=== PATIENT | male | born 1985 | race Asian ===

== ENCOUNTER 2024-01-12 10:27 | Outpatient (AMB) | payer BC, SELFPAY ==
--- NOTE | 2024-01-12 10:28 | HO.SPINEOV ---
Intake Visit Reasons: Cervical Spine Stenosis Intake Note: Mr. Romero is here today c/o right sided neck/upper back pain with tingling in the arm and fingers. 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 It is symptoms probably initially began sometime around September when he had a stiff neck and woke up the next morning with feelings of weakness in his right triceps. He does weightlifting triceps extensions in noticed he was not having similar strength to what he had done previously with the exercise. The stiff neck went away pretty quickly, and Eventually over the course of time the weakness went away as well. Sometime around mid October or the beginning of November he had a similar event where he noticed neck pain where he thought maybe he slept wrong or something. However, he developed a true radiculopathy with severe pain going into his subscapular area radiating down to his arm with tingling of his index in his middle finger. The triceps weakness came back as well. Over the course of a few weeks the weakness started to get significantly worse. He was very concerned about this and reached out to your office. An MRI was done and this showed C6-7 foraminal narrowing and he was sent urgently to see us. He had been scheduled with another neurosurgeon in the area at the end of December but because of the weakness we expedited an appointment. Had been trying ibuprofen, acetaminophen as well as marijuana gummies but nothing seems to take the pain away. He was also doing a temporary course of prednisone at 1 point, without any lasting effect. He did see his physical therapist who treats him for other elements and she did not think she was going to be able to treat this effectively given the weakness and the MRI findings. PMH: He is otherwise healthy, he had an appendectomy done when he was I believe 10 years old but no other major medical problems. Social hx: He has not smoke, drink, he does take marijuana gummies a few days a week just to help with some of the pain. Medications: Ibuprofen, acetaminophen, marijuana gummies Allergies: None Physical exam: He is awake alert oriented here with his today, he is uncomfortable with some upper extremity activity movements, he does have true weakness of the right triceps which I would rate as about 3/5. Left triceps is normal strength. Rest of his upper extremity strength is normal. He has absent reflexes bilaterally at the triceps, 2+ at the biceps, negative Jackson's sign. Positive Spurling sign. He does not have any signs of muscle atrophy at this point. Imaging review: Cervical MRI done at [facility] shows he has some mild disc degeneration throughout his cervical spine, but at C6-7 on the right there appears to be a small disc herniation tucked into the foramen which appears to be posteriorly displacing the right C7 nerve root. No evidence of any cord signal change or myelomalacia. Impression: 38 year old male presents to the office today with a C7 radiculopathy which I believe to be due to the small disc herniation seen at the C6-7 level on the right. We had a lengthy discussion about the natural history of disc herniations and the long-term implications of weakness in his arm and the urgency to expedite surgery because the weakness has been rapidly progressing. Typically the option for this kind of surgery would be anterior cervical fusion, but because of his age, and his activity levels it would likely be better for him to have an artificial disc. I did send Dr. Palomo his imaging and he agrees that this is certainly very reasonable option. I talked about expectations after surgery and that there was no guarantee that the weakness in the arm would come back to full strength as there could be some underlying nerve damage already, but that the success rate for the arm pain is 90%. The patient understands and wants to proceed with surgery. Pt was given risk and benefits of surgery including but not limited to infection, hematoma , nerve injury,durotomy, weakness,bowel/bladder injury, persistent pain, vocal hoarseness and dysphagia as well as the option to continue with conservative treatment and patient wishes to proceed with surgery. Pt is aware they should stop their motrin, 7 days prior to surgery. All questions were answered to the best of our ability. If there is anything about this patients medical history that we have overlooked or concerns you have about us proceeding with surgery we would appreciate any input you can offer. Thank you for allowing us to care for your patient. The total time spent with this visit with this patient was 65 minutes reviewing history, physical exam, cervical imaging review, and implementation of treatment plan or further diagnostic testing Davonte Palomo MD,PhD [facility] Coding Level of Care Code New Pt Level 5 (80346) Diagnoses Cervical radiculopathy M54.12
== END 2024-01-12 11:43 | disposition home or self-care (01) ==
PROVIDERS: PCP Family Medicine; Referring Provider Physical Medicine & Rehabilitation; Visit Provider Physician Assistant
DX: M54.12 Radiculopathy, cervical region (principal)
CPT/HCPCS: 99205

== ENCOUNTER → 2024-01-12 10:27 | Outpatient (BNVA) | payer BC, SELFPAY | PROVIDERS: PCP Family Medicine; Visit Provider Physician Assistant ==

== ENCOUNTER 2024-01-15 12:50 | Day surgery (SDC) | payer BC, SELFPAY ==
[2024-01-15] VITALS (14 sets, daily range): BP systolic 114–129; BP diastolic 66–81; PULSE 54–71; RESP 14–16; TEMP 36.6–36.9; O2SAT 98–100; BMI 24.2
[2024-01-15] MEDS: methocarbamoL 750 MG TABLET PO (13:21)
[2024-01-15] MEDS: Gabapentin 300 MG CAPSULE PO (13:21)
--- NOTE | 2024-01-15 13:24 | MHC.SHP ---
Pre-Procedural Eval Section A - 24 Hr Update-Section A only Date of Service: 01/15/24 The patient is an INPATIENT: No The patient has been examined within 24 hours of the surgical procedure. The History & Physical has been completed within 30 days and I have reviewed it.: Yes Section B - Complete if H&P > 30 days Chief Complaint: Radiculopathy, cervical region Allergies: Allergies Allergy/AdvReac Type Severity Reaction Status Date / Time No Known Allergies Allergy Verified 01/15/24 13:00 Plan Diagnosis/Plan: Unchanged I have reviewed the history and physical and performed a pertinent physical examination on my patient. No changes have occurred unless specified. 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
--- NOTE | 2024-01-15 13:25 | HO.ANESPROP2 ---
[facility] Active Problems Active Problems: All Active Problems Cervical radiculopathy (Acute) Past Medical History Medical History Cervical radiculopathy Surgical History Surgical History Hx of wisdom tooth extraction Hx of appendectomy History of Problems with Anesthesia: No Social History Social History Patient Tobacco Use Status: Never used Tobacco Use of substances other than those prescribed or required for medical reasons: Yes Substance Use Type Other:: edibles--2-3 x wk Substance Use Frequency: Occasionally Are you DNR?: No Advance Directives: No Advance Directives Information Provided: Yes Meds Allergies Allergy/AdvReac Type Severity Reaction Status Date / Time No Known Allergies Allergy Verified 01/15/24 13:00 Active Medications: Current Medications Lactated Ringer's (Lr) 1,000 mls @ 50 mls/hr IVCONT .Q20H BRENNAN Home Medications ?Medication ?Instructions ?Recorded ?Confirmed ?Last Taken ?Type [place] 3 PO DAILY 01/15/24 01/12/24 History cholecalciferol (vitamin D3) 25 25 mcg PO DAILY 01/15/24 01/15/24 01/12/24 History mcg (1,000 unit) capsule (Vitamin D3) ibuprofen 400 mg tablet 400 mg PO Q6H PRN Pain 01/15/24 01/15/24 01/12/24 History lactobacillus combination no.4 3 3 cell PO DAILY 01/15/24 01/15/24 01/12/24 History billion cell capsule (Probiotic) turmeric PO DAILY 01/15/24 01/12/24 History Exam Height,Weight and Vital Signs: Height 6 ft 3 in Weight 87.997 kg Last Vital Signs Temp 98.5 F 01/15/24 13:12 Pulse 62 01/15/24 13:12 Resp 15 01/15/24 13:12 BP 124/78 01/15/24 13:12 Pulse Ox 100 01/15/24 13:12 O2 Del Method Room Air 01/15/24 13:12 Airway Mallampati Class: III (long neck) TM Dist: >3cm Neck ROM: Limited Loose/Missing/Broken Teeth: No Heart: RRR Lungs: CTA Assessment and Plan Assessment Anesthesia Assessment: Anesthesia Plan Discussed and Chart Reviewed Final Anesthetic Review History of Problems with Anesthesia: No NPO: Yes ASA Class: I Final Preanesthetic Review: Meds/Allgs Chart Reviewed, Consent Obtained/Reviewed and Anes Risks/Benef Reviewed Patient Risk: Low Procedure Risk: Intermediate Anesthetic Plan Anesthetic Plan: GA Disposition: Standard PACU
[2024-01-15] MEDS: Lactated Ringers 1,000 ML 50 ML IVCONT (13:31)
--- NOTE | 2024-01-15 15:21 | W.PM.OPN ---
Operative Note Operative Note Date of Service: 01/15/24 Narrative: Preoperative Diagnosis: Right C7 radiculopathy with triceps weakness Procedure : C6-7 total disc arthropathy Informed Consent was obtained for this operation. I have explained the nature, purpose and benefits of the operation. I have discussed the risks and benefit of the operation including possible complications or adverse events with patient/family. Alternative(s) were discussed with the patient with their relative benefits and risks as well as the consequences of not accepting the operation were included in obtaining consent. Surgeon: JOVAN SALDIVAR MD, PHD Procedure Assisted By: Saad Wheeler Description of Procedure: This 38-year-old male is suffering from right cervical radiculopathy and progressive triceps weakness. An MRI of the cervical spine shows a bilateral C7 foraminal stenosis and a small intraforaminal disc fragment compressing the C7 nerve root on the right side.. The patient was offered a total disc arthropathy The alternatives, procedure and complications were explained. The patient was consented. The patient was brought to the operating room and endotracheally intubated. The patient was put in supine position with slight extension of the neck. Prep and drape was done followed by timeout. A mid cervical incision was made followed by opening of the platysma. The prevertebral fascia was reached following the natural planes while the physician psychiatric nursing assistant provided manual retraction. The prevertebral fascia was opened to expose the disc space. A spinal needle was placed in the disk space to confirm the correct level with xray. The longus colli muscles were released bilaterally and a self retaining retractor was inserted. Two [place] pins were placed in the C6 and C7 vertebral bodies parallel to the endplates and distraction was give over the interspace. The discectomy was completed toward the posterior annulus of the disc. The microscope was brought in. The remainder of the discectomy was completed. The posterior ligament was opened and resected to expose the underlying dura. Bilateral foraminotomies were done. A nerve hook could be easily passed over the exiting nerve roots as a sign of adequate decompression. A trial implant was inserted to determine the correct implant size is. Then an artificial disc of sentinel spine of 19 x 16 and 5 mm height was inserted under fluoroscopic guidance. Final x-rays in AP and lateral projection showed a satisfactory position of the implant. The physician psychiatric nursing assistant took over. The [place] pin was removed. Hemostasis was done. He closed the incision in 2 layers with a 3-0 Vicryl. Steri-Strips used to approximate incision. An OpSite with Tegaderm was used to cover the incision. All sponge and needle counts were correct. Patient was extubated and transported in stable is to recovery room. Anesthesia: General Estimated Blood Loss (ml): 10 Duration of Surgery: 60 minutes Postoperative Plan: Discharge home Complications: None
--- NOTE | 2024-01-15 15:27 | P.DS_ITS ---
DS: Providers Provider Date of Service: 01/15/24 Primary care physician: Modesta Pena MD DS: Summary Time Attestation Discharge Coordination Time (in mins): 30 Quality: Safe Use of Opioids Does Pt have an Active Cancer Diagnosis on the Problem List?: No Quality: Stroke Does the patient have a stroke diagnosis?: No Physical Exam Vital Signs: Vital Signs: Last Vital Signs Temp 98.5 F 01/15/24 13:12 Pulse 62 01/15/24 13:12 Resp 15 01/15/24 13:12 BP 124/78 01/15/24 13:12 Pulse Ox 100 01/15/24 13:12 O2 Del Method Room Air 01/15/24 13:12 BMI result Body Mass Index 24.2 Discharge Plan Discharge Patient Disposition: Home, Self-Care Referrals: Modesta Pena MD [Primary Care Provider] - 1 Week Discharge Medications: No Action ibuprofen 400 mg Tablet 400 mg PO Q6H PRN (Reason: Pain) cholecalciferol (vitamin D3) [Vitamin D3] 25 mcg (1,000 unit) Capsule 25 mcg PO DAILY Probiotic 3 billion cell Capsule 3 cell PO DAILY [place] 3 PO DAILY turmeric PO DAILY Discharge Orders: Discharge Order (Routine); Ordered 01/15/24 Ordered By: Saad Wheeler Diet: Advance to usual diet Activity on Discharge: As tolerated Activity Restrictions/Additional Instructions: After your spinal surgery we ask you to observe the following restrictions/guidelines: Activity: It is normal to feel some discomfort as you increase your activity, but that will improve with time. We ask you avoid heavy lifting or acitivities that cause pain. As a general rule, 8lbs is a safe limit for lifting right after surgery. Walk as much as you feel comfortable but not to exhaustion. You will feel extra tired the first few days after surgery. Stay well hydrated. It is OK to walk up and down stairs You may return to driving when you are off narcotics (such as vicodin, oxycodone, dilaudid, etc), and you are back to normal functional capacity. If you have any concerns please check with office before driving. Return to work is specific to each patient and each surgery, so please speak with your doctor/PA at first follow up. Please bring paperwork such as FMLA at that time if you need it filled out. Medication: You can take Tylenol 1,000mg 3 times daily alongside the oxycodone we are prescribing. You may also utilize ibuprofen as needed if you are able to tolerate it, starting 1 day after surgery. We will give you a short supply of narcotics after surgery (usually one weeks worth). If you need more please call the office but do not use more than prescribed. You will need to give our office 48 hours notice if you need narcotics refilled and we do not fill narcotics on weekends or evenings. If you are on a narcotic, it is a good idea to take a stool softener such as colace or senna to avoid constipation If you take blood thinner such as aspirin, Plavix, Coumadin, Effient, Eliquis etc for conditions such as Afib, DVT, Pulmonary embolus, coronary disease, stents etc please speak with your surgeon about specific details as to when you can resume these medications. You can resume NSAIDs on post op day 1 (eg: Motrin, Naproxen, etc). Follow up: Please call the office, , after surgery to arrange a 3 week follow up for wound check. Wound Care: You may remove your dressing on the first day after surgery. ?You may ?leave open to air. Please do not remove the steri strips underneath. they will fall off on their own in one week. IT IS NORMAL FOR THE WOUND TO OOZE OR BE BLOODY FOR A FEW DAYS AFTER SURGERY. ?IF THIS HAPPENS JUST PLACE NEW DRESSING OVER IT TO AVOID STAINING CLOTHES. You may shower on post op day # 1 We ask that you do not let the water soak the wound. If it does get wet, just towel dry lightly. Please do not scrub your incision or place any type of chemical/ointment on the wound. No tub baths, pools or jacuzzis for one month. If you have any leaking or redness from your wound, or fevers, please call office Print Language: Luxembourger
[2024-01-15] MEDS: fentaNYL citrate/PF 100 MCG/2 ML VIAL 25 MCG IVPUSH ×4 (15:46→16:03)
[2024-01-15] MEDS: oxyCODONE HCl Immed Release 5 MG TABLET PO (16:14)
== END 2024-01-15 17:00 | disposition home or self-care (01) ==
PROVIDERS: PCP Family Medicine; Visit Provider Neurological Surgery
PROC: (CPT 22856; principal; 2024-01-15 15:30)
DX: M54.12 Radiculopathy, cervical region (principal); M48.02 Spinal stenosis, cervical region
CPT/HCPCS: 22856; C1776; J0131; J0690; J1100; J2250; J2405; J2704; J3010

== ENCOUNTER → 2024-01-15 12:50 | Outpatient (BNV) | payer BC, SELFPAY | PROVIDERS: PCP Family Medicine; Visit Provider Neurological Surgery | DX: M54.12 Radiculopathy, cervical region (principal) | CPT/HCPCS: 22856; 99499 ==

== ENCOUNTER 2024-02-05 15:33 | Outpatient (REF) | payer BC, SELFPAY | END 2024-02-05 15:34 | disposition home or self-care (01) | LOC: HO.HOSX 15:33 | PROVIDERS: PCP Family Medicine; Visit Provider Physician Assistant | DX: Z13.89 Encounter for screening for other disorder (principal) ==

== ENCOUNTER 2024-02-05 15:33 | Outpatient (AMB) | payer BC, SELFPAY ==
--- NOTE | 2024-02-05 15:41 | A.SPINEOV_ITS ---
Intake Visit Reasons: 1st post op Intake Note: Mr. Romero is here today for his 1st post-op visit. 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 He is seen remarkable improvements in the preoperative tingling and pain down his arm. He feels as though the strength might be slightly better as well. He is thinking about heading back to work. He has been walking, but avoiding any strenuous activity as outlined in our instructions on discharge. On my exam his wound is healing up nicely, he almost has full strength in the right triceps. This is very encouraging. We discussed activity guidelines, restrictions and expectations after total disc arthroplasty. I allowed him to liberalize some of his activity and exercise but did tell him I would like him to avoid doing full tennis activities as the serving part of the competition can be a bit of a repetitive motion activity and would not want him to do that at this time. I would like to see him back in 6 weeks with a set of x-rays. I gave him a note to start work half days and return to full days into weeks. Davonte Palomo MD, PhD [facility] Coding Level of Care Code Global (70831) Diagnoses Cervical radiculopathy M54.12
== END 2024-02-05 16:20 | disposition home or self-care (01) ==
PROVIDERS: PCP Family Medicine; Visit Provider Physician Assistant
DX: M54.12 Radiculopathy, cervical region (principal)
CPT/HCPCS: 99024

== ENCOUNTER 2024-03-22 14:41 | Outpatient (REF) | payer BC, SELFPAY ==
--- NOTE | ~2024-03-22 | XR_ITS ---
EXAMINATION: XR CERVICAL SPINE 4 VIEWS CLINICAL INFORMATION: Radiculopathy, cervical region M54.12. COMPARISON: None available TECHNIQUE: 4 views of the cervical spine, inclusive of flexion and extension views, were obtained. FINDINGS: The cervical spine is imaged to the C7 vertebral body. There is relative straightening of the cervical lordosis. Status post disc arthroplasty at C6-C7. No radiographic evidence of hardware complication. No significant subluxation with flexion and extension. Vertebral body heights are maintained. Prevertebral soft tissues are within normal limits. XR/XR cervical spine 4V IMPRESSION: Status post disc arthroplasty at C6-C7. No acute abnormality. Electronically signed by: Allen Enamorado MD 05/13/2024 02:06 PM SHALONDA DIAMOND
== END 2024-03-22 14:42 | disposition home or self-care (01) ==
LOC: HO.HOSX 14:41
PROVIDERS: PCP Family Medicine; Visit Provider Physician Assistant
DX: M54.12 Radiculopathy, cervical region (principal)
CPT/HCPCS: 72050

== ENCOUNTER 2024-03-22 14:41 | Outpatient (AMB) | payer BC, SELFPAY ==
--- NOTE | 2024-03-22 14:49 | HO.SPINEOV ---
Intake Visit Reasons: 2nd post op with xrays Intake Note: Mr. Romero is here today for his 2nd post-op appointment with Xrays Director Of Distribution Required: No Allergies No Known Allergies Allergy (Verified 02/05/24 15:49) Assessment & Plan Assessment & Plan (1) Cervical radiculopathy: Code(s): M54.12 - Radiculopathy, cervical region Category: Medical Plan Mr Romero is 2 months out from his artificial disc. He seems to be doing well in terms of the pain. His triceps is healing up slowly, still having some trouble with his exercise routine getting the number of repetitions and the weight is back to where they were before his disc herniated. I reassured him that the nerve may take up to a year to heal and that he should continue to work to try to improve the strength. Working with a physical therapist would help. He has 1 that he has used in the past for other issues and is going to talk with her about getting some exercises to see if he can optimize that arm. He has been playing tennis but not doing the serving motions because of the repetitive up and down with the neck flexion and extension. We have asked him to use caution with doing that right after the surgery. He had his x-rays done today and these show excellent position of the implant and I do not see any signs of bony overgrowth her fusion at the surgical site. He was little worried about that right after surgery but it seems that everything is healing up beautifully. I told him that at this point he has no restrictions and he can go back to tennis as tolerated but to expect some neck discomfort when he starts. It may take some time for that they go away. At this point he can come back and see us on an as-needed basis. Davonte Palomo MD, PhD [facility] Coding Level of Care Code Global (73092) Diagnoses Cervical radiculopathy M54.12
== END 2024-03-22 16:02 | disposition home or self-care (01) ==
PROVIDERS: PCP Family Medicine; Visit Provider Physician Assistant
DX: M54.12 Radiculopathy, cervical region (principal)
CPT/HCPCS: 99024

== ENCOUNTER 2024-11-26 16:30 | Outpatient (REF) | payer BC, SELFPAY | END 2024-11-26 16:31 | disposition home or self-care (01) | LOC: HO.HOSX 16:30 | PROVIDERS: Visit Provider Physician Assistant | DX: Z13.89 Encounter for screening for other disorder (principal) ==

== ENCOUNTER 2024-11-29 11:23 | Outpatient (REF) | payer BC, SELFPAY ==
--- NOTE | ~2024-11-29 | XR_ITS ---
EXAMINATION: XR CERVICAL SPINE CLINICAL INFORMATION: M54.12 - Radiculopathy, cervical region COMPARISON: March 22, 2024. TECHNIQUE: AP, lateral views and lateral views during flexion and extension position. FINDINGS: Intervertebral disc spacer placement at C6-7. Small marginal osteophyte formation and decreased intervertebral disc height at C5-6. No acute cortical disruption. No gross malalignment. No malalignment during flexion and extension position. Craniocervical junction is intact. No lytic or blastic lesions. Prominent transverse processes versus rudimentary ribs at C7. XR/XR cervical spine 4V IMPRESSION: No acute fracture or listhesis or gross instability. 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 Stable intervertebral disc spacers C6-7. Electronically signed by: Chaz Grewal MD 11/29/2024 11:48 AM EDT
== END 2024-11-29 11:24 | disposition home or self-care (01) ==
LOC: HO.HOSX 11:23
PROVIDERS: Visit Provider Physician Assistant
DX: M54.12 Radiculopathy, cervical region (principal)
CPT/HCPCS: 72050

== ENCOUNTER 2024-11-29 11:23 | Outpatient (AMB) | payer BC, SELFPAY ==
--- NOTE | 2024-11-29 11:49 | HO.SPINEOV ---
Intake Visit Reasons: f/u from sx 01/15/24 Intake Note: Mr. Romero is here today for a F/u. 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 He underwent a C6-7 total disc arthroplasty about 10 months ago or so. He has had a subtotal recovery of strength in the triceps, but it is very close to near normal. 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 The only time he really notices it is when he is doing specific triceps exercises and he will be able to do less wraps on the right side than on the left. On my exam today he is strength is full with no noticeable deficits. His x-rays today look excellent, there is no signs of auto fusion at the implant site. I think he still has room for recovery with the strength in the triceps. He has no specific limitations at this point. I can see him back on an as-needed basis. Total amount of time spent in this visit was 20 minutes in discussion of symptoms, cervical x-ray imaging results and subsequent plan of care Davonte Palomo MD,PhD [facility] Coding Level of Care Code Est Pt Level 3 (47791) Diagnoses Cervical radiculopathy M54.12
--- OUTSIDE RECORDS SUMMARY | 2024-11-29 12:17 | XMS_ITS | Data Portability ---
Author Organization [facility], [facility] Address [address] [place] [address] Care Team Providers Care Camp Housekeeper Name Role Phone KEILA PEREZ [facility] [phone] KEILA FAROOQ Battery Wrecker Operator Assessment Encounter Date Assessment Date Assessment LastModified by Organization Details LastModified Time 02/07/2015 02/07/2015 pes planovalgus deformity, plantar wart jerskine Not available 02/07/2015 16:04:37 02/17/2015 02/17/2015 4 PT sessions since initial evaluation on January 09, 2015 Since our prior session patient reports no change in symptom control and function. He has yet to try running or tennis. He has new orthotics that he is also working on breaking in. Clinically associated pain with ROM and resisted motions are improving. He is demonstrating better endurance with exercise and better controlled with squatting and stairs stepping. We will assess if continued exercise with progressive intensity help patient in progression toward their goals. We have discussed return to tennis and he will do this along with breaking in his orthotics. Follow up: 1-2 weeks vicky Not available 02/17/2015 16:13:39 03/13/2015 03/13/2015 5 PT sessions since initial evaluation on January 09, 2015 Since our prior session patient reports improvement in symptom control and functionfor his left knee. His right knee has been a more chronic problem and is slightly more irritated Clinically associated pain with ROM and resisted motions are improving. He is demonstrating better endurance with exercise and better controlled with squatting and stairs stepping. At this time he feels comfortable with his exercise program and comfortable with his plan to return to tennis. No further physical therapy is planned. josullivan Not available 03/14/2015 07:04:38 06/15/2015 06/15/2015 pes planovalgus deformity jerskine Not available 06/15/2015 16:09:58 Plan of Treatment Reminders Order Date Submit Date Provider Last Modified By Organization Details Last Modified Time Details Appointments None record ed. Lab None record ed. Referral None record ed. Procedures None record ed. Surgeries None record ed. Imaging None record ed. Medication Orders None record ed. Patient TargetsNo targets recorded. Patient Instructions Encounter Date Encounter Id Patient Instructions Last Modified By Organization Details Last Modified Time 02/07/2015 [id number] Continue OTC 40% salicylic acid in area of plantar wart daily. Patient to return in 2-3 weeks for orthotic evaluation. jerskine Not available 02/07/2015 16:04:37 03/14/2015 [id number] Patient to retur n in 6-8 weeks for orthotic evaluation. jerskine Not available 03/14/2015 16:02:41 06/15/2015 [id number] Patient to drop off orthotics to be sent to lab for additional permanent scaphoid padding medial longitudinal arches pending improvement. jerskine Not available 06/15/2015 16:09:58 Reason for Referral None Reported. Problems Name Problem SNOMED Code Status Onset Date Resolution Date Notes Provider Name and Address Organization Details Recorded Time Knee pain Active Keila Perez , PT [address] [place], [address] , [facility] 5 07:04:38 Tinea pedis 3612835 Active [address], DPM [address] [place], [address] , [facility] 5 09:44:20 Myopia 97015418 Active 2002 Not Available [facility] 3 03:09:46 Streptococc al sore throat 13375554 Completed 200204/21/2013 Not Available [facility] 3 02:02:02 On examination - a rash Completed 200204/21/2013 Not Available [facility] 3 02:00:47 Problem Notes None recorded. Procedures Surgical History Date Name Laterality Status Provider Name and Address Organization Details Recorded Time 5 14312: Therapeutic Exercise completed Keila Perez, PT [address] [place], [address], [facility] 03/14/2015 07:01:58 5 47360: Therapeutic Exercise completed Keila Perez, PT [address] [place], [address], [facility] 02/17/2015 16:05:54 5 77177: Therapeutic Exercise completed Keila Perez, PT [address] [place], [address], [facility] 02/03/2015 16:08:22 5 23926: Therapeutic Exercise completed Keila Perez, PT [address] [place], [address], [facility] 01/23/2015 12:38:50 5 25944: Therapeutic Exercise completed Keila Perez, PT [address] [place], [address], [facility] 01/16/2015 17:55:25 5 75517: PT Evaluation completed Keila Perez, PT [address] [place], [address], [facility] 01/09/2015 15:57:00 5 Destruction of skin lesion completed Kimberly Lane DPM [address] [place] [address], [address], [facility] 09/23/2014 09:26:44 5 Destruction of skin lesion completed Kimberly Lane DPM [address] [place] [address], [address], [facility] 09/09/2014 09:41:51 5 Destruction of skin lesion completed Kimberly Lane DPM [address] [place] [address], [address], [facility] 08/24/2014 10:34:38 3 Wart completed Indiana Peña Graef, [address], [address], [facility] 07/31/2012 11:42:28 2 Wart completed Indiana Ni, [address], [address], [facility] 05/29/2012 11:34:13 2 Wart completed Indiana Delgadilloforeign, [address], [address], [facility] 04/28/2012 08:29:41 2 Wart completed Indiana Reinosouer Elieforeign, [address], [address], [facility] 04/17/2012 16:11:26 2 Wart completed Ab Talavera MD [address] [place] [address], [address], [facility] 04/12/2012 18:34:03 6 Abdominal Surgery completed Zander Ramey MD [address] [place] [address], [address], [facility] 05/20/2013 15:24:07 Imaging Results None recorded. Procedure Notes None recorded. Medical Equipment None Reported. Allergies No known drug allergies Medications Name Sig Start Date Stop Date Status Note LastModified by Organization Details LastModified Time cyclobenz aprine 10 mg tablet Take 1 tablet twice a day by oral route as needed. 2012 active Not Available Not Available Not Avai lable Tubersol 5 tub. unit/0.1 mL intraderm al injection solution 2010 active Instruct ed he must make a f/u appt to be seen by the nurse in 48-72hrs . Not Available Not Available Not Available triamcino lone acetonide 0.1 % topical cream Apply 1 applicat ion twice a day by topical route for 14 days. 05/11 completed Not Available Not Available Not Available salicylic acid 17 % topical liquid Apply 1 applicat ion every day by topical route after bathing. 2014 active Not Available Not Available Not Avai lable hydrocort isone 1 % topical cream Apply 1 applicat ion twice a day by topical route for 14 days. 08/12 completed Not Available Not Available Not Available Anaprox DS 550 mg tablet Take 1 tablet twice a day by oral route. 2012 active Not Available Not Available Not Avai lable Lamisil AF 1 % topical powder Apply 1 applicat ion by topical route as directed . 2014 active Not Available Not Available Not Avai lable salicylic acid 27.5 % topical film-form ing liquid apply 1 applicat ion. allow to dry apply a second applicat ion. do this BID for up to 6 weeks. 2011 active Not Available Not Available Not Avai lable Vitals Date Recorded Body weight Body mass index (BMI) Heart rate Body height Systolic blood pressure Diastolic blood pressure Provider Name and Address Organization Details Last Updated DateTime 6 21660.6 2059 g 25.5 kg/m2 70 /min 191.77 cm 104 mm[Hg] 68 mm[Hg] Roseline Gacria [facility] 6 15:54:47 Date Recorded Body weight Body height Body mass index (BMI) Heart rate Systolic blood pressure Diastolic blood pressure Provider Name and Address Organization Details Last Updated DateTime 5 20555.6 2059 g 191.77 cm 25.5 kg/m2 68 /min 110 mm[Hg] 64 mm[Hg] Deng Moralez MA [facility] 5 15:12:40 Date Recorded Body weight Body height Heart rate Body mass index (BMI) Systolic blood pressure Diastolic blood pressure Provider Name and Address Organization Details Last Updated DateTime 5 68162.6 2059 g 191.77 cm 70 /min 25.5 kg/m2 110 mm[Hg] 70 mm[Hg] Deng Moralez MA [facility] 5 15:52:02 Social History Question Answer Notes LastModified by Organizat ion Details LastModified Time Tobacco Smoking Status Never Smoker Not Available [facility] 04/18/2011 04:56:02 Do You Have An Advance Directive? No lriel Information not available 05/20/2013 What Is Your Level Of Caffeine Consumption? Occasional Once A Week, Tea 2-3x A Week, Rare Cola Information not available 10/13/2014 How Much Tobacco Do You Chew? None [email or web address] Information not available 04/18/2011 What Type Of Diet Are You Following? REGULAR Information not available 10/13/2014 Which Illicit Or Recreational Drugs Have You Used? 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 No Information not available 03/24/2012 Live Alone Or With Others? With Others [email or web address] Information not available 04/18/2011 Patient Has Health Care Proxy Signed And In Chart No Is Going To Check Status 5.14.15 Information not available 03/24/2012 Marital Status Sydni French [email or web address] Information not available 11/19/2010 Mosquito Repellent Used Routinely No Information not available 03/24/2012 How Many Children Do You Have? 1 Information not available 10/13/2014 Seat Belts Used Routinely Yes Information not available 03/24/2012 Smoke Alarm In Home Yes Information not available 03/24/2012 General Stress Level Medium Information not available 10/13/2014 Do You Use Sunscreen Routinely? No Information not available 03/24/2012 Sex: Unknown Functional Status Question Answer Note LastModified by Organizat ion Details LastModified Time What is your level of alcohol consumption? 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 [email or web address] Information not available 03/24/2012 Mental Status None recorded. Family History Relationship Description Onset Age of this Age Resolved Age Notes LastModified by Organization Details LastModified Time Father Heart disease 72 pacema daiana barker Not available 10/13/2014 10:47:01 Notes:no family history of C A, no family history of kidney disease. no autoimmune diseases. Mother pre-diabetic Medical History No medical history recorded. Immunizations Vaccine Type Date Status Note Provider Patrick alvarado and Address Organization Details Recorded Time Tdap 1 completed Not Available [facility] 06/19/2019 02:29:24 MMR 8 completed Not Available [facility] 04/17/2011 05:23:04 MMR 7 completed Not Available [facility] 04/17/2011 05:22:52 Hep B, adolescent or pediatric 7 completed Not Available [facility] 04/17/2011 05:22:52 Td (adult) 8 completed Not Available [facility] 04/17/2011 05:22:52 Hep B, adolescent or pediatric 7 completed Not Available [facility] 04/17/2011 05:22:52 Hep B, adolescent or pediatric 8 completed Not Available [facility] 04/17/2011 05:22:52 meningococcal ACWY, unspecified formulation 4 completed Not Available [facility] 04/17/2011 05:22:52 polio, unspecified formulation 6 completed HUBERT Landa, [facility] 05/20/2013 15:09:00 polio, unspecified formulation 6 completed Not Available [facility] 04/17/2011 05:22:52 polio, unspecified formulation 6 completed Not Available [facility] 04/17/2011 05:22:52 polio, unspecified formulation 9 completed Not Available [facility] 04/17/2011 05:22:52 DTP 6 completed Not Available [facility] 04/17/2011 05:22:52 DTP 6 completed Not Available [facility] 04/17/2011 05:22:52 DTP 6 completed Not Available [facility] 04/17/2011 05:22:52 DTP 9 completed Not Available [facility] 04/17/2011 05:22:52 Influenza, split virus, trivalent, PF 3 completed Not Available [facility] 06/19/2019 02:33:06 Past Encounters Encounter ID Performer Location Encounter Start Date Encounter Closed Date Diagnosis/Indication Diagnosis SNOMED-CT Code Diagnosis ICD10 Code Diagnosis Note [id number] Leo James[facility] [address] [address] 04/03/2000 15:15:00 06/22/2008 02:02:29 [id number] Leo James [facility], [address] [address] 09/02/2002 14:54:51 06/22/2008 02:02:29 [id number] Connie GIBBS , [facility], OFFICE [address] [place] [address] DR BARNEY HUBERT [address] 09/29/2002 14:39:45 06/22/2008 02:02:29 [id number] Pooja Schreiber MD , [facility], OFFICE [address] [place] [address] ALPHONSEArgenis HUBERT [id number] 10/19/2002 09:01:50 06/22/2008 02:02:29 [id number] Alistair ROSE, [facility], OFFICE [address] [place] [address] ALPHONSEArgenis HUBERT [id number] 07/18/2003 14:35:38 07/18/2003 16:33:31 [id number] Alistair ROSE, [facility], OFFICE [address] [place] [address] ALPHONSEArgenis HUBERT [id number] 11/28/2003 15:04:14 11/29/2003 09:06:37 [id number] Sydni Lockwood MD , [facility], OFFICE [address] [place] [address] ALPHONSEArgenis HUBERT [id number] 11/19/2010 15:50:40 11/19/2010 17:17:04 [id number] FP TREATMENT NURSE [facility], [facility], OFFICE [address] [place] [address] ALPHONSEArgenis HUBERT [id number] 11/22/2010 14:37:28 11/22/2010 14:41:25 [id number] Ab Talavera MD , [facility], [address] [place] [address] 03/24/2012 15:34:56 03/24/2012 16:44:23 [id number] Ab Talavera MD , [facility], [address] [place] [address] 04/10/2012 15:40:24 04/10/2012 16:28:39 [id number] SETH Thomas-[facility], [facility], [address] [place] [address] 04/17/2012 15:16:15 04/17/2012 16:10:15 [id number] Ab Talavera MD , [facility], [address] [place] [address] 04/27/2012 15:48:21 04/27/2012 16:56:30 [id number] [place] [facility], [address] [place] [address] 05/29/2012 09:29:39 05/29/2012 10:34:19 [id number] [place] CONOR Meza , [facility], [address] [place] [address] 07/29/2012 13:49:11 07/29/2012 14:39:12 [id number] Stephanie Heard NP , [facility], [address] [place] [address] 02/04/2013 16:49:02 02/04/2013 17:16:53 Low back pain 763213470 Enc. ice to low back, can alternate with heat. Take anaprox bid as below, flexeril prn at HS if trouble sleeping, can't get comfortabl e. Back care handout given. Work note - out tomorrow. OK to return on 02/08 if better. Rest over the weekend. PT referral done - pt to schedule. F/U if not gradually improving or sx worsening. Reassurred that this seems muscular and should gradually resolve. Knee pain 45985890 Pain in both knees. Pt concerned about possible lyme ( had it). Will return for lyme test but will also f/u with PT for the knee pain which sounds more muscular. [id number] Zander Ramey MD , [facility], [address] [place] [address] 05/06/2013 16:07:29 05/06/2013 16:24:07 Influenza vaccine needed [id number] 118 [id number] Zander Ramey MD , [facility], [address] [place] [address] 05/20/2013 14:59:49 05/21/2013 09:43:15 Adult health examination 991916911 see Risk Assessment and Lifestyle Change Counseling section above Knee pain 55195090 Verruca plantaris 51076678 [id number] Kimberly Lane DPM Podiatry, [facility] [address] [place] [address] 08/24/2014 09:35:23 08/24/2014 15:33:20 Verruca plantaris 28304901 Tinea pedis 0183608 Onychomycosis 149466772 Exostosis 819329162 Left medial Lisfranc's joint [id number] Kimberly Lane DPM Podiatry, [facility] [address] [place] [address] 09/09/2014 09:17:12 09/09/2014 09:44:31 Tinea pedis 5017011 Verruca plantaris 19371318 [id number] Kimberly Lane DPM Podiatry, [address] [address] 09/23/2014 09:08:46 09/23/2014 09:32:32 Verruca plantaris 15102162 [id number] Keila Farooq DPM Podiatry, [address] [address] 10/11/2014 12:09:10 10/11/2014 12:31:24 Verruca plantaris 96942631 [id number] BERNIE Henry , [facility], [address] [place] [address] 10/13/2014 10:01:05 10/13/2014 11:11:14 Adult health examination 357996720 see Risk Assessment and Lifestyle Change Counseling section above [id number] Keila Farooq DPM Podiatr, [address] [address] 11/03/2014 15:39:38 11/03/2014 16:14:43 Verruca plantaris 57010903 [id number] Keila Farooq DPM Podiatry, [address] [address] 12/01/2014 12:23:53 12/15/2014 03:45:10 Verruca plantaris 11055248 Pain in limb 34747514 Congenital valgus deformity of foot 57505750 [id number] Keila Farooq DPM Podiatry, [address] [address] 12/13/2014 11:17:33 12/13/2014 11:25:19 Pain in limb 49803145 Congenital valgus deformity of foot 97385521 [id number] Keila Farooq DPM Podiatry, [address] [address] 12/27/2014 11:03:28 12/27/2014 11:28:05 Verruca plantaris 27906570 [id number] Keila Perez , PT Physical Therapy, [address] [address] 01/09/2015 14:36:26 01/10/2015 10:19:57 Knee pain 69808227 [id number] Keila Perez , PT Physical Therapy, [address] [address] 01/16/2015 17:34:45 01/17/2015 07:46:38 Knee pain 95382367 [id number] Keila Perez , PT Physical Therapy, [address] [address] 01/23/2015 12:09:52 01/23/2015 12:55:08 Knee pain 92545444 [id number] Keila Perez , PT Physical Therapy, [address] [address] 02/03/2015 15:42:45 02/07/2015 09:25:47 Knee pain 34325403 [id number] Keila Farooq DPM Podiatry, [address] [address] 02/07/2015 15:07:45 02/07/2015 15:40:59 Congenital valgus deformity of foot 90948498 Verruca plantaris 67679839 [id number] Keila Perez , PT Physical Therapy, [address] [address] 02/17/2015 15:41:39 02/21/2015 07:16:40 Knee pain 05598456 [id number] Keila Perez , PT Physical Therapy, [address] [address] 03/13/2015 16:41:21 03/14/2015 07:38:12 Knee pain 68688072 M25.561 M25.251 [id number] Keila Farooq DPM Podiatry, [address] [address] 03/14/2015 15:44:13 03/14/2015 16:03:58 Pronation of foot 59208473 M21.6X9 Verruca plantaris 604964 08 B07.0 [id number] Keila Farooq DPM Podiatry, [facility] [address] [place] [address] 06/15/2015 15:45:58 06/15/2015 16:09:00 Pronation of foot 87102582 M21.6X9 Health Concerns Section Related Observation LastModified by Organization Detai ls LastModified Time None Recorded Concern Status LastModified by Organization Details LastModified Time None Recorded Advance Directives Directive N: Payers Insurance Date Sequence Insurance Name Policy Number Policy Roberson Covered Member ID Roberson Member ID Guarantor Name 06/08/2015 1 [place] Davonte Romero [id number] Davonte Romero 06/08/2015 1 [facility] PUBLIC PLANS [employer] - DIRECT CONNECTORCARE TYPE III (HMO) Davonte Romero [id number] Davonte Romero 06/08/2015 1 [place] OPTIONS DEDUCTIBLE - MEDICAL SECURITY PLAN [id number] Davonte Romero [id number] Davonte Romero 07/07/[address] [place] [address] Kathia Romero [id number] Davonte Romero 04/11/2003 1 [place] [facility] ([place]MO[facility] [id number] Kathia Romero [id number] Davonte Romero 06/08/2015 1 [facility] [employer]ALTH Davonte Romero [id number] Davonte Romero 06/08/2015 1 [place] [facility] Davonte Romero [id number] Davonte Romero 06/08/2015 1 [facility] PLAN (HMO) [id number] Davonte Romero [id number] Davonte Romero 06/08/2015 [employer] [facility] [place] Davonte Romero [id number] Davonte Romero 06/08/2015 1 [place] HMO [facility] (O) [id number] Davonte Romero [id number] Davonte Romero 02/04/2013 1 *SELF PAY* Va belia Romeor 02/14/2016 1 [place] [facility] [id number] Davonte Romero [id number] Davonte Romero Notes Date Note Type Note Provider Name and Address Organization Details Recorded Time 02/07/2015 text/html HPI Patient presents to the office to dispense custom orthotics for her pes planovalgus deformity. Keila Farooq DPM [address] [place], [address], [facility] 02/07/2015 16:04:44 03/14/2015 text/html HPI Patient presents to the office for evaluation custom orthotics for pes planovalgus deformity. Patient states he had no difficulty adapting to devices and comfortably wears them full-time. Patient also presents for continued care plantar wart. Keila Farooq DPM [address] [place], [address], [facility] 03/14/2015 16:02:51 06/15/2015 text/html HPI Patient presents to the office for evaluation custom orthotics for knee pain associated with pes planovalgus deformity. Patient states he has been doing well with orthotics, but continues to feel some knee discomfort. Patient also like evaluation of previous plantar wart. Keila Farooq DPM [address] [place], [address], [facility] 06/15/2015 16:10:06
== END 2024-11-29 12:49 | disposition home or self-care (01) ==
LOC: HO.HNS 11:24
PROVIDERS: PCP Family Medicine; Visit Provider Physician Assistant
DX: M54.12 Radiculopathy, cervical region (principal)
CPT/HCPCS: 99213

== ENCOUNTER → 2024-11-29 11:36 | Outpatient (BNV) | payer BC, SELFPAY | PROVIDERS: Visit Provider Radiology Diagnostic Radiology | DX: M47.22 Other spondylosis with radiculopathy, cervical region (principal); M50.223 Other cervical disc displacement at C6-C7 level | CPT/HCPCS: 72050 ==